=== PATIENT | female | born 1985 | race Two or more races ===

== ENCOUNTER 2020-08-28 19:13 | Emergency (ER) | payer SELFPAY ==
[~2020-08-28] VITALS: Ht 160 cm; Wt 61.2 kg
[2020-08-28 19:25] VITALS: BP 124/60
== END 2020-08-28 22:19 | disposition left against medical advice (07) ==
LOC: ER 19:17
DX: T78.40XA Allergy, unspecified, initial encounter (principal); Z53.21 Procedure and treatment not carried out due to patient leaving prior to being seen by health care provider; X58.XXXA Exposure to other specified factors, initial encounter; Y93.89 Activity, other specified; Y92.89 Other specified places as the place of occurrence of the external cause; Y99.8 Other external cause status